=== PATIENT | female | born 1945 | race African-American/Black ===

== ENCOUNTER 2016-08-28 16:21 | Emergency (ER) | payer MEDICARE, OTHER ==
[~2016-08-28 16:21] MED LIST: ACET500CAP PO; ALIGN4 MG PO; ALLEGRA180 PO; ATV.5 PO; ATV1 PO; BENTYL10 PO; CITRACAL PO; COREG6 PO; COREGCR20 PO; ESTRACE VAG0.1 MG/GM V; FLECTOR1.3 % TOP; FLEX PO; LIPITOR10 PO; LOM PO; NORV5 PO; PCET PO; PR25 PO; PRILO PO; PRILOSEC10 MG PO; PRILOSEC40 MG PO; PROAIR HFA INH; VITAMIN D31000 UNIT PO; VITC500 PO; VOLTAREN1 % TOP; WELCHOL625 MG OR; WELCHOL625 MG PO; ZYRTEC ALLGY10 MG PO
[2016-08-28 17:46] LABS: BASOPHILS 0.2 %; BASOPHILS ABSOLUTE 0.02 10/3/uL (0.0-0.16); EOSINOPHILS 0.4 %; EOSINOPHILS ABSOLUTE 0.03 10/3/uL (0.0-0.53); ER CBC TAT 0 Hrs 07 Mins; HEMATOCRIT 40.1 % (36.0-48.0); HEMOGLOBIN 14.3 g/dL (12.0-16.0); IMMATURE GRANULOCYTES 0.1 %; IMMATURE GRANULOCYTES ABSOLUTE 0.01 10/3/uL (0.0-0.11); LYMPHOCYTES ABSOLUTE 1.11 10/3/uL (0.67-4.30); MEAN CORPUS HGB CONC 35.7 g/dL (32.0-36.0); MEAN CORPUSCULAR HEMOGLOB 31.6 pg (26.0-34.0); MEAN PLATELET VOLUME 9.1 fL (9.2-13.0); MONOCYTES 6.1 %; MONOCYTES ABSOLUTE 0.52 10/3/uL (0.21-1.20); NEUTROPHILS 80.2 %; NEUTROPHILS ABSOLUTE 6.83 10/3/uL (2.02-8.40); PLATELET COUNT 346 10/3/uL (150-400); RBC DISTRIBUTION WIDTH 13.9 % (12.0-16.0); RED CELL COUNT 4.53 10/6/uL (4.0-5.6); WHITE BLOOD CELLS 8.5 10/3/uL (4.5-10.5)
[2016-08-28 17:49] LABS: MANUAL DIFF NO %; MEAN CORPUSCULAR VOLUME 88.5 fL (80-100)
[2016-08-28 17:54] LABS: PARTIAL THROMBO TIME 33.2 SEC (22.5-37.2); PROTIME (NOT ORD) 13.4 SEC (12.0-14.5)
[2016-08-28 18:00] LABS: ALBUMIN 4.1 G/DL (3.5-5.0); ALKALINE PHOSPHATASE 103 U/L (45-117); BUN (BLOOD UREA NITROGEN) 8 MG/DL (6-23); CALCIUM, SERUM 10.1 MG/DL (8.5-10.4); CHEST PAIN PROFILE TAT 0 Hrs 21 Mins; CHLORIDE, SERUM 100 MMOL/L (96-112); CO2 (CARBON DIOXIDE) 28 MMOL/L (24-34); CREATININE 0.65 MG/DL (0.55-1.02); DIRECT BILIRUBIN < 0.1 MG/DL (0.0-0.4); GFR AFRICAN AMERICAN 103 ML/MIN (>=60); GFR NON AFRICAN AMERICAN 89 ML/MIN (>=60); GLUCOSE, SERUM 112 MG/DL (60-99); INDIRECT BILIRUBIN(NOT ORDER) 0.2 MG/DL (0.1-0.9); POTASSIUM, SERUM 3.4 MMOL/L (3.5-5.3); SGOT(AST) 12 U/L (5-40); SGPT(ALT) 15 U/L (5-65); SODIUM, SERUM 134 MMOL/L (135-148); TOTAL BILIRUBIN 0.3 MG/DL (0-1.2); TOTAL PROTEIN 8.2 G/DL (6.0-8.5); TROPONIN I <0.02 NG/ML (<0.05)
[2016-09-07] MEDS ORDERED: OXYCONTIN30 MG PO (15:50)
[2016-09-07] MEDS ORDERED: NEUR300 PO (15:51)
[2016-09-07] MEDS ORDERED: ANOROELLIPTA INH (15:52)
[2016-10-15] MEDS ORDERED: ABRAXANE IV (08:48)
[2016-10-15] MEDS ORDERED: MIRALAX POWDER1 PKT PO (08:51)
[2016-10-15] MEDS ORDERED: DEX4 PO (08:53)
[2016-10-19] MEDS ORDERED: REM15 PO (09:02)
[2016-10-19] MEDS ORDERED: OXYCON40 PO (09:02)
[2016-10-19] MEDS ORDERED: T PO (09:04)
[2016-10-19] MEDS ORDERED: DSS PO (09:05)
[2016-10-19] MEDS ORDERED: ZOFRAN ODT4 MG PO (09:07)
[2016-12-04] MEDS ORDERED: WELCHOL 625 MG625 MG PO (06:01)
[2016-12-04] MEDS ORDERED: DEX4 PO (06:02)
[2016-12-04] MEDS ORDERED: VENTOLIN HFA INH (06:04)
[2016-12-04] MEDS ORDERED: DOXIL (06:04)
[2016-12-04] MEDS ORDERED: OXYCON80 PO (06:08)
[2016-12-12] MEDS ORDERED: DURA75 TOP (09:53)
== END 2016-08-28 21:34 | disposition home or self-care (01) ==
LOC: ER 16:21
PROVIDERS: Emergency Medicine
DX: R10.13 Epigastric pain (principal); R07.89 Other chest pain; R91.1 Solitary pulmonary nodule; I10 Essential (primary) hypertension; J44.9 Chronic obstructive pulmonary disease, unspecified; K21.9 Gastro-esophageal reflux disease without esophagitis; F41.9 Anxiety disorder, unspecified; Z85.118 Personal history of other malignant neoplasm of bronchus and lung; Z87.891 Personal history of nicotine dependence; Z88.5 Allergy status to narcotic agent; Z88.8 Allergy status to other drugs, medicaments and biological substances; Z79.899 Other long term (current) drug therapy
CPT/HCPCS: 71275; 74177; 80048; 80076; 83690; 83735; 84484; 85025; 85610; 85730; 93005; 96374; 96375; 96376; 99285; J1170; J2405; Q9967